=== PATIENT | female | born 1995 | race Caucasian/White ===

== ENCOUNTER → 2017-04-23 | Outpatient (REF) | payer OTHER ==
[2017-04-23 13:23] LABS: PLATELET COUNT, AUTOMATED 291 K/uL (150-450)
== END ==
LOC: ZZSTITCHES 13:05
PROVIDERS: ATTEND Physician Assistant
DX: R10.11 Right upper quadrant pain (principal); R19.8 Other specified symptoms and signs involving the digestive system and abdomen
CPT/HCPCS: 82040; 82247; 82310; 82374; 82435; 82565; 82947; 83690; 84075; 84132; 84155; 84295; 84450; 84460; 84520; 85025

== ENCOUNTER → 2017-04-23 | Outpatient (CLI) | payer OTHER ==
--- NOTE | 2017-04-23 14:46 | RADIOLOGY IMAGING REPORT ---
FACILITY: [facility] PATIENT NAME: Pita Lebron : 1995 MR: [id number] V: [id number] EXAM DATE: ORDERING PHYSICIAN: LASHONDA LOPEZ TECHNOLOGIST: Location: [facility] [place] Patient: Pita Lebron : 1995 Visit/Account:[id number] Date of Sevice: 04/23/2017 EXAMINATION: Focused right upper quadrant ultrasound COMPARISON: None HISTORY: Right upper quadrant pain for 2 days. Findings: Standard right upper quadrant abdominal ultrasound is performed. Pancreas: Visualized portions of the pancreas are unremarkable. Liver and portal vein: Negative. Gallbladder and biliary system: No gallbladder stone or sludge. No wall thickening, pericholecystic f luid, or sonographic Birch's. The common bile duct is not dilated. Aorta and IVC: The visualized aorta and IVC are patent. Kidneys: The right kidney measures 10.2 x 4.4 x 5.1 cm . No renal mass, stone, or hydronephrosis. Ascites: None. IMPRESSION: Negative right upper quadrant ultrasound. Report Dictated By: Toby Riley MD at 04/23/2017 2:40 PM Report E-Signed By: Toby Riley MD at 04/23/2017 2:41 PM WSN:[id number]
== END ==
LOC: US 13:55
PROVIDERS: ATTEND Physician Assistant
DX: R10.11 Right upper quadrant pain (principal); R19.8 Other specified symptoms and signs involving the digestive system and abdomen
CPT/HCPCS: 76705

== ENCOUNTER → 2017-05-07 | Outpatient (CLI) | payer OTHER ==
[~2017-05-07] MED LIST: BARIUM SULFATE 176 GM BTL PO ONE; BARIUM SULFATE 340 GM POWD ONE; OMEP-125 PO
--- NOTE | 2017-05-07 11:57 | RADIOLOGY IMAGING REPORT ---
FACILITY: [facility] [place] PATIENT NAME: Pita Lebron : 1995 MR: [id number] V: [id number] EXAM DATE: ORDERING PHYSICIAN: MAYCOL PETERSON TECHNOLOGIST: Location: [facility] [place] Patient: Pita Lebron : 1995 Visit/Account:[id number] Date of Sevice: 05/07/2017 EXAMINATION: Double contrast upper GI with small bowel follow-through 05/07/2017 5:43 AM HISTORY: Chronic diarrhea. Remote history of ruptured appendicitis at about the age of 6 with resect ion of distal small bowel at that time. COMPARISON: Normal abdominal ultrasound 04/23/2017 FLUOROSCOPY TIME: 1.5 minutes DOSE: DAP was 710.11 uGy/m2 FINDINGS: Loading Unit Operator Crimping KUB is unremarkable. Initially, the patient ingested swallows of thick barium uprig ht with the oral pharyngeal area imaged from the frontal and lateral projections. Swallowing is norm al. Hypopharynx is normally and symmetrically distensible. After the ingestion of bicarbonate crystals the patient drank additional thick barium upright followe d by thin barium in the prone MALIK position. Esophageal peristalsis is normal. The esophagus distend s normally without stricture or obstructing lesion. Mucosal pattern is unremarkable. No significant hiatal hernia. GE junction is widely patent. The stomach distends normally. Rugal folds are thickened. No gastric mass or ulceration is evident. There is no delay in gastric emptying. Duodenal bulb and C-loop are negative. No significant dalila roesophageal reflux was provoked with straining. Chondrosis follow-through the small bowel. Contrast reaches the colon by 30 minutes. Small bowel lo ops have normal caliber. Mucosal fold pattern is unremarkable. No focal stricture or obstruction. Neoterminal ileum is unremarkable in appearance. IMPRESSION: Small bowel is somewhat short from remote surgery. Otherwise unremarkable upper GI and small bowel f ollow-through. Report Dictated By: Shaq Howard MD at 05/07/2017 11:48 AM Report E-Signed By: Shaq Howard MD at 05/07/2017 11:52 AM WSN:[email or web address]
== END ==
LOC: RAD 00:18
PROVIDERS: ATTEND Surgery
DX: R10.10 Upper abdominal pain, unspecified (principal); R14.0 Abdominal distension (gaseous); R19.7 Diarrhea, unspecified
CPT/HCPCS: 74245

== ENCOUNTER → 2017-05-10 | Outpatient (CLI) | payer OTHER ==
[~2017-05-10] MED LIST changes: -BARIUM SULFATE 176 GM BTL PO ONE; -BARIUM SULFATE 340 GM POWD ONE; +SINCALIDE 5 MCG VIAL INJ ONE; +WATER STERILE(*) 10 ML VIAL 10 ML ONE
--- NOTE | 2017-05-10 14:02 | RADIOLOGY IMAGING REPORT ---
FACILITY: [facility] PATIENT NAME: Pita Lebron : 1995 MR: [id number] V: [id number] EXAM DATE: ORDERING PHYSICIAN: MAYCOL PETERSON TECHNOLOGIST: Location: [facility] [place] Patient: Pita Lebron : 1995 Visit/Account:[id number] Date of Sevice: 05/10/2017 HIDA W/CCK History: Abdominal pain TECHNIQUE: 5.9 mCi Tc99m mebrofenin was injected intravenously. Multiple sequential gamma camera rojelio ges of the abdomen were obtained for 60 minutes. At that time, 2.5 mcg of CCK was injected intravenou sly and an additional 30 minutes of gamma camera imaging data was acquired. A computer-generated reg ion of interest was placed around the gallbladder and time-activity curve for the gallbladder was jefe ived. The gallbladder ejection fraction was calculated. COMPARISON: None FINDINGS: Liver uptake and excretion: Normal Time to appearance: Bile ducts: 13 minutes. Gallbladder: 31 minutes. Duodenum: 13 minutes. Duodenal- gastric reflux / extravasation: None Post IV Kinevac: Patient symptoms: Nausea with CCK administration Ejection fraction = 9 %, (normal range > 35%). IMPRESSION: 1. Patency of the cystic duct and common bile duct are both demonstrated. 2. Low gallbladder ejection fraction measuring 9%. Report Dictated By: Evan Mcdonald MD at 05/10/2017 1:54 PM Report E-Signed By: Evan Mcdonald MD at 05/10/2017 1:59 PM WSN:[email or web address]
== END ==
LOC: NUC 01:09
PROVIDERS: ATTEND Surgery
DX: R10.10 Upper abdominal pain, unspecified (principal); R14.0 Abdominal distension (gaseous); R19.7 Diarrhea, unspecified
CPT/HCPCS: 78226; A4216; A9537; J2805

== ENCOUNTER 2017-05-14 07:05 | Inpatient (IN) | payer OTHER ==
[~2017-05-14] VITALS: Ht 172.7 cm; Wt 65.8 kg
[~2017-05-14 07:05] MED LIST changes: -SINCALIDE 5 MCG VIAL INJ ONE; -WATER STERILE(*) 10 ML VIAL 10 ML ONE
[2017-05-14] MEDS ORDERED: NS(*) 0.9% 1000 ML BAG 1,000 ML IV ONE (07:35)
[2017-05-14] MEDS ORDERED: KETOROLAC 15 MG/ML VIAL IVP ONE (07:45)
[2017-05-14] MEDS ORDERED: ONDANSETRON 4 MG/2 ML VIAL IVP ONE (07:45)
--- NOTE | 2017-05-14 07:53 | ER Report ---
History and Physical Time Seen By MD: 07:47 Hx. of Stated Complaint: PATIENT REPORTS ABDOMINAL CRAMPING SINCE YESTERDAY AROUND 4 PM. SHE REPORTS DIARRHEA FOR 3-4 DAYS AND 1 EPISODE OF EMESIS SINCE YESTERDAY HPI/ROS CHIEF COMPLAINT: Abdominal pain and cramping HISTORY OF PRESENT ILLNESS: Patient is a 21-year-old female who presents to the emergency department with abdominal pain and cramping that began yesterday around 4 PM. It was unrelated to meals. Patient has had similar episodes in the past and is being followed by general surgery she currently had a HIDA scan was done this past Wednesday and was reported by the patient as "normal". She is scheduled for a colonoscopy and perhaps further testing depending on the colonoscopy findings. Patient states her current pain is 5-6 out of 10 in intensity she reports associated nausea but no fever. She has a history of chronic diarrhea secondary to short gut syndrome. She is had an appendectomy that was complicated by rupture and removal of 3 feet of intestine. REVIEW OF SYSTEMS: Constitutional: No fever, no chills. Eyes: No discharge. ENT: No sore throat. Cardiovascular: No chest pain, no palpitations. Respiratory: No cough, no shortness of breath. Gastrointestinal: Abdominal cramping, chronic diarrhea, nausea no vomiting Genitourinary: No hematuria. Musculoskeletal: No back pain. Skin: No rashes. Neurological: No headache. Allergies: Coded Allergies: No Known Drug Allergies (Unverified , 04/30/17) Home Meds Reported Medications Omeprazole (OMEPRAZOLE) 20 Mg Capsule.dr, 1 CAP PO BID, CAP 04/30/17 Past Medical/Surgical History History of appendectomy with removal of 3 feet of intestine. History of chronic diarrhea secondary to short gut syndrome. Smoking Status: Never Smoker Hx Substance Use Disorder: No Hx Alcohol Use: No Constitutional Vital Sign - Last 24 Hours 05/14/17 05/14/17 05/14/17 05/14/17 07:09 07:14 07:30 07:35 Temp 98.2 Pulse 100 Resp 20 B/P (MAP) 152/87 152/87 (108) 121/87 (98) Pulse Ox 95 O2 Delivery Room Air 05/14/17 05/14/17 05/14/17 05/14/17 08:00 08:05 08:30 09:00 Pulse 96 B/P (MAP) 115/78 (90) 111/76 (88) 106/68 (81) Pulse Ox 97 Physical Exam General/Constitutional: Patient is awake, alert, nontoxic and in no acute respiratory distress. Head: Normocephalic and atraumatic. Eyes: Conjunctival clear, Pupils are equal and reactive to light. Sclera are clear and anicteric. Ears:External canals are clear. Tympanic membranes are clear with normal landmarks and light reflex. Nares: No rhinorrhea or bleeding. Turbinates are pink and moist. Oropharyngeal: Mucous membranes are moist. There is no pharyngeal erythema or exudate. There are no palatal petechiae. Uvula is midline and symmetrical. Neck: Supple, no adenopathy. Cardiovascular: Heart is regular rate and rhythm without audible murmurs, rubs or gallops. Pulmonary: Lungs are clear to auscultation bilaterally. There are no wheezes, rales, or rhonchi. Chest rise is symmetrical Abdomen: Soft, diffusely tender without guarding or rebound tenderness no focal tenderness elicited Extremities: No gross deformities, No peripheral cyanosis. Able to move all 4 extremities. Neuro: Alert and oriented X3, Skin: No rashes, skin is warm dry and well perfused. Medical Decision Making Data Points Result Diagram: 05/14/17 0728 05/14/17 0728 Laboratory Hematology Test 05/14/17 07:11 05/14/17 07:28 Urine Color Yellow Urine Clarity Clear Urine pH 6.0 pH (4.8-9.5) Urine Specific [place] 1.026 Urine Protein Negative mg/dL (NEGATIVE) Urine Glucose (UA) Negative mg/dL (NEGATIVE) Urine Ketones Negative mg/dL (NEGATIVE) Urine Blood Small (NEGATIVE) Urine Nitrite Negative (NEGATIVE) Urine Bilirubin Negative (NEGATIVE) Urine Urobilinogen Negative mg/dL (0.2-1.9) Urine Leukocyte Esterase Small (NEGATIVE) Urine RBC 3 /HPF (0-2/HPF) Urine WBC 9 /HPF (0-5/HPF) Urine Squamous Epithelial Cells Many /LPF (</=FEW) Urine Bacteria Few /HPF (NONE-FEW) Urine Mucus Few /HPF (NONE-FEW) Red Blood Count 5.49 M/uL (4.17-5.56) Mean Corpuscular Volume 87.2 fL (80.0-96.0) Mean Corpuscular Hemoglobin 30.0 pg (26.0-33.0) Mean Corpuscular Hemoglobin Concent 34.4 g/dL (32.0-36.0) Red Cell Distribution Width 12.6 % (11.5-14.5) Mean Platelet Volume 8.3 fL (7.2-11.1) Neutrophils (%) (Auto) 72.0 % (39.4-72.5) Lymphocytes (%) (Auto) 21.2 % (17.6-49.6) Monocytes (%) (Auto) 6.0 % (4.1-12.4) Eosinophils (%) (Auto) 0.5 % (0.4-6.7) Basophils (%) (Auto) 0.3 % (0.3-1.4) Nucleated RBC Relative Count (auto) 0.0 /100WBC Neutrophils # (Auto) 7.5 K/uL (2.0-7.4) Lymphocytes # (Auto) 2.2 K/uL (1.3-3.6) Monocytes # (Auto) 0.6 K/uL (0.3-1.0) Eosinophils # (Auto) 0.1 K/uL (0.0-0.5) Basophils # (Auto) 0.0 K/uL (0.0-0.1) Nucleated RBC Absolute Count (auto) 0.01 K/uL Sodium Level 140 mmol/L (137-145) Potassium Level 3.7 mmol/L (3.5-5.0) Chloride Level 103 mmol/L (98-107) Carbon Dioxide Level 22 mmol/L (22-31) Blood Urea Nitrogen 10 mg/dl (7-18) Creatinine 1.00 mg/dl (0.52-1.04) Glomerular Filtration Rate Calc > 60.0 Random Glucose 109 mg/dl (75-110) Calcium Level 9.6 mg/dl (8.4-10.2) Total Bilirubin 0.8 mg/dl (0.2-1.3) Aspartate Amino Transf (AST/SGOT) 31 U/L (0-35) Alanine Aminotransferase (ALT/SGPT) 22 U/L (0-56) Alkaline Phosphatase 126 U/L (0-126) Total Protein 7.4 gm/dl (6.3-8.2) Albumin 4.3 g/dl (3.5-5.0) Lipase 45 U/L (23-300) Human Chorionic Gonadotropin, Qual Negative (NEGATIVE) Helicobacter pylori IgG Antibody Negative (NEGATIVE) Chemistry Test 05/14/17 07:11 05/14/17 07:28 Urine Color Yellow Urine Clarity Clear Urine pH 6.0 pH (4.8-9.5) Urine Specific [place] 1.026 Urine Protein Negative mg/dL (NEGATIVE) Urine Glucose (UA) Negative mg/dL (NEGATIVE) Urine Ketones Negative mg/dL (NEGATIVE) Urine Blood Small (NEGATIVE) Urine Nitrite Negative (NEGATIVE) Urine Bilirubin Negative (NEGATIVE) Urine Urobilinogen Negative mg/dL (0.2-1.9) Urine Leukocyte Esterase Small (NEGATIVE) Urine RBC 3 /HPF (0-2/HPF) Urine WBC 9 /HPF (0-5/HPF) Urine Squamous Epithelial Cells Many /LPF (</=FEW) Urine Bacteria Few /HPF (NONE-FEW) Urine Mucus Few /HPF (NONE-FEW) White Blood Count 10.4 k/uL (4.5-11.0) Red Blood Count 5.49 M/uL (4.17-5.56) Hemoglobin 16.5 g/dL (12.0-16.0) Hematocrit 47.9 % (34.0-47.0) Mean Corpuscular Volume 87.2 fL (80.0-96.0) Mean Corpuscular Hemoglobin 30.0 pg (26.0-33.0) Mean Corpuscular Hemoglobin Concent 34.4 g/dL (32.0-36.0) Red Cell Distribution Width 12.6 % (11.5-14.5) Platelet Count 280 K/uL (150-450) Mean Platelet Volume 8.3 fL (7.2-11.1) Neutrophils (%) (Auto) 72.0 % (39.4-72.5) Lymphocytes (%) (Auto) 21.2 % (17.6-49.6) Monocytes (%) (Auto) 6.0 % (4.1-12.4) Eosinophils (%) (Auto) 0.5 % (0.4-6.7) Basophils (%) (Auto) 0.3 % (0.3-1.4) Nucleated RBC Relative Count (auto) 0.0 /100WBC Neutrophils # (Auto) 7.5 K/uL (2.0-7.4) Lymphocytes # (Auto) 2.2 K/uL (1.3-3.6) Monocytes # (Auto) 0.6 K/uL (0.3-1.0) Eosinophils # (Auto) 0.1 K/uL (0.0-0.5) Basophils # (Auto) 0.0 K/uL (0.0-0.1) Nucleated RBC Absolute Count (auto) 0.01 K/uL Glomerular Filtration Rate Calc > 60.0 Calcium Level 9.6 mg/dl (8.4-10.2) Total Bilirubin 0.8 mg/dl (0.2-1.3) Aspartate Amino Transf (AST/SGOT) 31 U/L (0-35) Alanine Aminotransferase (ALT/SGPT) 22 U/L (0-56) Alkaline Phosphatase 126 U/L (0-126) Total Protein 7.4 gm/dl (6.3-8.2) Albumin 4.3 g/dl (3.5-5.0) Lipase 45 U/L (23-300) Human Chorionic Gonadotropin, Qual Negative (NEGATIVE) Helicobacter pylori IgG Antibody Negative (NEGATIVE) Urinalysis Test 05/14/17 07:11 Urine Color Yellow Urine Clarity Clear Urine pH 6.0 pH (4.8-9.5) Urine Specific [place] 1.026 Urine Protein Negative mg/dL (NEGATIVE) Urine Glucose (UA) Negative mg/dL (NEGATIVE) Urine Ketones Negative mg/dL (NEGATIVE) Urine Blood Small (NEGATIVE) Urine Nitrite Negative (NEGATIVE) Urine Bilirubin Negative (NEGATIVE) Urine Urobilinogen Negative mg/dL (0.2-1.9) Urine Leukocyte Esterase Small (NEGATIVE) Urine RBC 3 /HPF (0-2/HPF) Urine WBC 9 /HPF (0-5/HPF) Urine Squamous Epithelial Cells Many /LPF (</=FEW) Urine Bacteria Few /HPF (NONE-FEW) Urine Mucus Few /HPF (NONE-FEW) EKG/Imaging Imaging CT scan is concerning for small bowel obstruction. ED Course/Re-evaluation Clinical Indication for ER IV: Hydration, IV Access ED Course 05/14/2017 7:53:18 am plan at this time will be to perform an abdominal workup including CT scan of the abdomen and pelvis. We'll give IV fluids, IV Zofran and IV Toradol at this time. 05/14/2017 9:30:18 am case was discussed with on-call surgeon Dr. Gonzales plan at this time will be admission for observation secondary to small bowel obstruction Decision to Disposition Date: May 14, 2017 Decision to Disposition Time: 09:30 Depart Departure Latest Vital Signs Vital Signs Date Time Temp Pulse Resp B/P (MAP) Pulse Ox O2 Delivery O2 Flow Rate FiO2 05/14/17 09:00 106/68 (81) 05/14/17 08:05 96 97 05/14/17 07:09 98.2 20 Room Air Impression: Primary Impression: Small bowel obstruction Condition: Improved Disposition: Admitted from ER (To Dr Helms) RACHEL BABB MD May 14, 2017 07:53
[2017-05-14 07:54] LABS: PLATELET COUNT, AUTOMATED 280 K/uL (150-450)
[2017-05-14] MEDS ORDERED: NS(*) 0.9% 10 ML VIAL 20 ML ONE (07:54)
[2017-05-14] MEDS ORDERED: IOPAMIDOL 76% 75 ML INFUS BTL 75 ML ONE (07:54)
--- NOTE | 2017-05-14 10:03 | RADIOLOGY IMAGING REPORT ---
FACILITY: [facility] PATIENT NAME: Pita Lebron : 1995 MR: [id number] V: [id number] EXAM DATE: ORDERING PHYSICIAN: RACHEL BABB TECHNOLOGIST: [facility] Patient: Pita Lebron : 1995 Visit/Account:[id number] Date of Sevice: 05/14/2017 CT abdomen with IV contrast CT pelvis with IV contrast History: Abdominal pain COMPARISON STUDIES: Small bowel follow-through 05/07/2017. TECHNIQUE: Axial CT images were obtained through the abdomen and pelvis during injection of nonioni c iodinated intravenous contrast. Reformatted coronal and sagittal images were also obtained. Contrast: 75 ml of Isovue-370 IV contrast. One of the following dose optimization techniques was utilized in the performance of this exam: Autom ated exposure control; adjustment of the mA and/or kV according to the patient's size; or use of an i terative reconstruction technique. Specific details can be referenced in the facility's radiology C T exam operational policy. FINDINGS: Chest bases: Negative Liver: Normal. Gallbladder and bile ducts: Gallbladder is present. Bile ducts are normal caliber. Spleen: size is normal. Pancreas: negative Adrenal glands: negative Kidneys: negative Pelvic structures: Uterus is anteverted. Ovaries are unremarkable. Bowel and mesenteries: A long loop of small bowel in the lower abdomen just to the left midline is d istended with fluid to a diameter of 4 cm.. There is mesenteric edema in the center of the affected small bowel loop. The ends of the dilated small bowel transition abruptly to decompressed small donnie l. Distal small bowel and colon are completely decompressed. The appendix is obscured. Ascites: A small amount of free fluid is seen in the lower pelvis. Vessels: negative Musculoskeletal: Negative Body wall: negative Lymph node assessment: negative IMPRESSION: Mechanical mid small bowel obstruction is very suspicious for closed loop obstruction due to the pres ence of mesenteric edema and abrupt tapering of both ends of the affected bowel loop. Surgical consu ltation is recommended. Results were discussed with RACHEL BABB at 05/14/2017 9 AM. Report Dictated By: Josefina Miller MD at 05/14/2017 9:01 AM Report E-Signed By: Josefina Miller MD at 05/14/2017 9:19 AM JULESN:[email or web address]
[2017-05-14 10:12] VITALS: BP 111/76
[2017-05-14] MEDS ORDERED: PROMETHAZINE 25 MG/ML 1 ML AMP IVP PRN (10:50)
[2017-05-14] MEDS ORDERED: FLUSH 10 ML SYR IVP PRN (10:50)
[2017-05-14] MEDS ORDERED: HYDROmorphone PCA 6 MG/30 ML IV PRN (10:50)
[2017-05-14] MEDS ORDERED: NALOXONE HCL 0.4 MG/ML VIAL IVP PRN (10:50)
[2017-05-14] MEDS ORDERED: ONDANSETRON 4 MG/2 ML VIAL IVP PRN (10:50)
[2017-05-14] MEDS: NS(*) 0.9% 1000 ML BAG 1,000 ML IV PRN ×2 (12:14→22:21)
[2017-05-14] MEDS ORDERED: DIATRIZOATE MEGL/DIATRIZOA SOD 120 ML SOLN PO ONE (12:46)
--- NOTE | 2017-05-14 12:46 | RADIOLOGY IMAGING REPORT ---
FACILITY: [facility] [place] PATIENT NAME: Pita Lebron : 1995 MR: [id number] V: [id number] EXAM DATE: ORDERING PHYSICIAN: MAYCOL PETERSON TECHNOLOGIST: Location: [facility] Patient: Pita Lebron : 1995 Visit/Account:[id number] Date of Sevice: 05/14/2017 Abdomen, 1 View History: Small bowel obstruction Comparison: CT abdomen and pelvis 05/14/2017 Findings: Bowel: A gas-filled small bowel loop in the left midabdomen is distended to 4 cm diameter. The flui d distended loops of small bowel in the lower abdomen are not visible on this abdominal radiograph. Distal small bowel and colon are decompressed. Calcifications: There are no radiopaque urinary stones. Bones: Negative Other: Radiopaque contrast is seen within the renal collecting systems, ureters, and bladder. IMPRESSION: Mechanical mid small bowel obstruction is better characterized by recent CT abdomen and pelvis, since the fluid distended small bowel is obscured on this plain film radiograph. Report Dictated By: Josefina Miller MD at 05/14/2017 12:40 PM Report E-Signed By: Josefina Miller MD at 05/14/2017 12:43 PM WSN:[email or web address]
[2017-05-14] MEDS ORDERED: PANTOPRAZOLE SOD 40 MG IV VIAL IVP SCH (13:40)
[2017-05-14 14:47] VITALS: BP 107/76
--- NOTE | 2017-05-14 16:20 | RADIOLOGY IMAGING REPORT ---
FACILITY: [facility] PATIENT NAME: Pita Lebron : 1995 MR: [id number] V: [id number] EXAM DATE: ORDERING PHYSICIAN: MAYCOL PETERSON TECHNOLOGIST: Location: [facility] [place] Patient: Pita Lebron : 1995 Visit/Account:[id number] Date of Sevice: 05/14/2017 SMALL BOWEL SERIES HISTORY: Small bowel obstruction COMPARISON: CT abdomen and pelvis 05/14/2017, upper GI and small bowel follow-through 05/07/2017. PROCEDURE: Half strength, water-soluble Gastrografin, 480 mL was administered orally. A series of ab dominal radiographs were obtained to two hours 15 minutes as contrast traveled from the stomach to th e colon through the small bowel. FINDINGS: Small bowel transit time was two hours 15 minutes. Proximal and mid bowel in the midabdomen becomes progressively distended as contrast migrates forward, correlating to the small bowel distention seen on the recent CT abdomen and pelvis. A small bowel loop in the upper pelvis measures nearly 6 cm pancho meter. The majority of the contrast concentrates within the mid small bowel, with transition to deco mpressed and minimally opacified distal small bowel and colon on the final image. The patient vomited the residual contrast within the stomach between 30 minutes and one hour 15 minut e images. IMPRESSION: Mechanical mid small bowel obstruction. Report Dictated By: Josefina Miller MD at 05/14/2017 4:09 PM Report E-Signed By: Josefina Miller MD at 05/14/2017 4:15 PM WSN:[email or web address]
[2017-05-14 17:05] VITALS: BP 107/63
--- NOTE | 2017-05-14 17:25 | Gen Surgery History & Physical ---
History of Present Illness Chief Complaint Abdominal pain History of Present Illness 21-year-old female with an extensive past abdominal surgical history presents with a 18 hour history of abdominal pain. The pain started yesterday evening and she has not passed flatus or gas since then. She is known to me as I recently saw her in the clinic with abdominal symptoms including postprandial nausea, right upper quadrant abdominal pain, and diarrhea. She reported at the time that she had a 4 day history of severe abdominal pain and cramps 6 months ago that she did not seek treatment for that time but simply stopped eating and it got better on its own. Her extensive abdominal surgical history includes a perforated appendicitis when she was 6 years old and this was treated with an emergent appendectomy complicated by an abscess which for some reason was treated with laparotomy and bowel resection which was complicated by an anastomotic leak which was treated with another operation. Ultimately she was transferred to [facility] where she had a another abscess percutaneously drained and ultimately she recovered from all of this. This complicated hospital and surgical course lasted for several months of her being in the hospital. Since then, she has had chronic abdominal pain and diarrhea. Here is my clinic note (HPI) from 04/30/17: 21-year-old female is referred for evaluation of GI symptoms. 1st and foremost, she has long-standing diarrhea since she was about 6 years old. Her diarrhea waxes and wanes but she never has constipation. At its worst, she will have 8-10 watery out movements a day including ones that will get her up in the middle of the night. At its best she will have 1-2 soft, semi-formed, bowel movements a day. She has diarrhea 80% of the time. Some foods will exacerbate her abdominal symptoms on one day but not on other days. Sometimes stress will exacerbate her diarrhea as well. More lately she has been experiencing abdominal pain which is in her upper abdomen but she relates it to her diarrhea as well, when her abdominal pain is worse, her diarrhea is worse. She was seen in urgent care where a right upper quadrant ultrasound was performed and was normal. She was started on PPI therapy a couple of months ago but was under the impression that she had to eat a half an hour after taking the medication but she does not like to eat in the mornings because she often experiences GI upset if she eats in the mornings. For this reason, she has not been taking the PPI regularly. That being said, when she has taken it, she has felt that it is helped with her epigastric pain although after she eats after taking and she will have GI upset. GI upset includes an unsettled stomach and nausea but not typically vomiting. Other than her episode several months ago and now she has never had a bowel obstruction. She hasn't had any further abdominal surgeries since she was 6yo. History Problems: (1) S/P appendectomy Status: Chronic (2) H/O resection of small bowel Status: Chronic (3) Anastomotic leak of intestine Status: Resolved Home Meds Reported Medications Omeprazole (OMEPRAZOLE) 20 Mg Capsule.dr, 1 CAP PO BID, CAP 04/30/17 Allergies: Coded Allergies: No Known Drug Allergies (Unverified , 04/30/17) Patient History: FH: HTN (hypertension) FATHER, Age:44 GERD FATHER, Age:44 No pertinent family history MOTHER BROTHER OR SISTER BROTHER OR SISTER Review of Systems All Systems Reviewed/Normal: Yes, Except as Noted Gastrointestinal: Nausea, Vomiting, Constipation, Abdominal Pain Exam General Appearance: Alert, Awake, No Acute Distress, Afebrile Neuro: No Gross deficits Eyes: PERRLA GI: Other (Soft, mild TTP, nondistended, no peritoneal signs.) Extremities: Warm, Perfused Medical Decision Making Data Points Result Diagram: 05/14/17 0728 05/14/17 0728 Assessment and Plan Problems: (1) Small bowel obstruction Status: Acute Assessment & Plan: 05/14/17: Patient is admitted for close observation. We will keep her nothing by mouth and give her IV fluids. If she has persistent nausea and vomiting then we will insert an NG tube for GI decompression. KUB is consistent with a small bowel obstruction and so we will follow serial KUBs. Small bowel follow-through reveals contrast ultimately making it to her colon and so tomorrow his KUB can help us assess how this evolves. If she fails to improve over the next day or 2 then we will proceed with surgical exploration. Recent HIDA scan reveals a gallbladder ejection fraction of 9% and so we would discuss cholecystectomy at the time of surgery if there is no contraindication for this. If she resolves without surgery during this hospitalization then I will continue to see her in the clinic and continue her evaluation and ultimately I would presume that she will need some sort of surgery to include a cholecystectomy but I can also assess her small bowel for adhesions or other problems at that time. I have explained this plan to both her and her mother via telephone and they seem to understand and seem to be agreeable with this plan. Condition Stable. Time Spent: < 30 min Venous Thromboembolism VTE Risk Physician Assess for VTE Risk: Yes Patient's VTE Risk: Low VTE Diagnostic Test 2 Days Prior to Admit: No Antithrombotics Is Pt On Any Antithrombotics?: No MAYCOL PETERSON MD May 14, 2017 17:25
[2017-05-14 18:50] VITALS: BP 106/68
[2017-05-14 22:22] VITALS: BP 109/65
[2017-05-15 04:53] VITALS: BP 102/63
[2017-05-15 05:38] LABS: PLATELET COUNT, AUTOMATED 212 K/uL (150-450)
--- NOTE | 2017-05-15 06:39 | RADIOLOGY IMAGING REPORT ---
FACILITY: [facility] PATIENT NAME: Pita Lebron : 1995 MR: [id number] V: [id number] EXAM DATE: ORDERING PHYSICIAN: MAYCOL PETERSON TECHNOLOGIST: Location: [facility] Patient: Pita Lebron : 1995 Visit/Account:[id number] Date of Sevice: 05/15/2017 Abdomen: Indication: Obstruction. Technique: A single supine film was obtained. Comparison: Small bowel series dated 05/14/2017. Findings: The oral contrast material is now present in the proximal, mid, and distal colon. The colon is not dilated. There is no residual contrast material in the small intestine. The skeletal and soft tissue structures are unremarkable and unchanged. IMPRESSION: No evidence of small bowel obstruction. Report Dictated By: Epi Lora MD at 05/15/2017 6:32 AM Report E-Signed By: Epi Lora MD at 05/15/2017 6:34 AM WSN:[id number]
[2017-05-15] MEDS: NS(*) 0.9% 1000 ML BAG 1,000 ML IV PRN (06:40)
[2017-05-15 08:13] VITALS: BP 101/52
[2017-05-15] MEDS ORDERED: NS(*) 0.9% 1000 ML BAG 1,000 ML IV PRN (08:51)
--- NOTE | 2017-05-15 08:56 | General Surgery Progress Note ---
Subjective Progress Notes Subjective Main complaint this morning is left anterior chest discomfort that started 2.5 hours ago. No SOB. She thinks it's from laying in bed. No previous h/o chest pain. Abdomen is back to her baseline. Not much abdominal pain. Physical Exam Vital Signs Date Time Temp Pulse Resp B/P (MAP) Pulse Ox O2 Delivery O2 Flow Rate FiO2 05/15/17 08:13 91 05/15/17 08:13 98.2 96 18 101/52 (68) Room Air General Appearance: Alert, Awake, No Acute Distress, Afebrile GI: Other (Soft, mild RLQ TTP, much better than yesterday, no distension.) Extremities: Warm, Perfused Result Diagram: 05/15/1752605/15/17526 Assessment and Plan Problems: (1) Small bowel obstruction Status: Acute Assessment & Plan: 05/14/17: Patient is admitted for close observation. We will keep her nothing by mouth and give her IV fluids. If she has persistent nausea and vomiting then we will insert an NG tube for GI decompression. KUB is consistent with a small bowel obstruction and so we will follow serial KUBs. Small bowel follow-through reveals contrast ultimately making it to her colon and so tomorrow his KUB can help us assess how this evolves. If she fails to improve over the next day or 2 then we will proceed with surgical exploration. Recent HIDA scan reveals a gallbladder ejection fraction of 9% and so we would discuss cholecystectomy at the time of surgery if there is no contraindication for this. If she resolves without surgery during this hospitalization then I will continue to see her in the clinic and continue her evaluation and ultimately I would presume that she will need some sort of surgery to include a cholecystectomy but I can also assess her small bowel for adhesions or other problems at that time. I have explained this plan to both her and her mother via telephone and they seem to understand and seem to be agreeable with this plan. 05/15/17: Doing much better this morning. Passing flatus. No BM yet. KUB looks normal this morning. No dilated small bowel and all contrast is in the colon. Will start clear diet this morning. Condition Stable. Time Spent: < 30 min Exam Sepsis Risk: No Definite Risk MAYCOL PETERSON MD May 15, 2017 08:56
[2017-05-15 09:53] VITALS: Ht 172.7 cm; Wt 65.8 kg
[2017-05-15 11:13] VITALS: BP 100/55
[2017-05-15 14:42] VITALS: BP 108/67
--- NOTE | 2017-05-15 15:08 | EKG ---
FACILITY: [facility] [place] PATIENT NAME: AGUSTINA HORNER : [id number] MR: [id number] V: [id number] EXAM DATE: ORDERING PHYSICIAN: MAYCOL PETERSON TECHNOLOGIST: Andre Nice Reason : Blood Pressure : / mmHG Vent. Rate : 090 BPM Atrial Rate : 090 BPM P-R Int : 160 ms QRS Dur : 082 ms QT Int : 352 ms P-R-T Axes : 075 069 044 degrees QTc Int : 430 ms Normal sinus rhythm with sinus arrhythmia Normal ECG No previous ECGs available Confirmed by RYAN NAPIER ([id number]) on 05/15/2017 4:27:13 PM Referred By: Confirmed By:RYAN NAPIER
--- NOTE | 2017-05-15 16:27 | RADIOLOGY IMAGING REPORT ---
FACILITY: [facility] PATIENT NAME: Pita Lebron : 1995 MR: [id number] V: [id number] EXAM DATE: ORDERING PHYSICIAN: MAYCOL PETERSON TECHNOLOGIST: Location: [facility] Patient: Pita Lebron : 1995 Visit/Account:[id number] Date of Sevice: 05/15/2017 CHEST SINGLE AP Indication: Chest pressure.. Comparison: None available Findings: Cardiomediastinal silhouette and pulmonary vessels within normal limits. There is no focal infiltrate or lobar consolidation. No pneumothorax or pleural effusion. No nodule. Upper abdomen is unremarkable. No acute bony abnormality. IMPRESSION: 1. No acute cardiopulmonary process. Report Dictated By: Aron Schwartz at 05/15/2017 4:24 PM Report E-Signed By: Aron Schwartz at 05/15/2017 4:25 PM WSN:[id number]
[2017-05-15] MEDS ORDERED: HYDROmorphone HCL 2 MG/ML SDV IVP PRN (18:00)
[2017-05-15] MEDS ORDERED: ACETAMINOPHEN 325 MG TAB PO PRN (18:00)
[2017-05-15] MEDS ORDERED: IBUPROFEN 600 MG TAB PO PRN (18:00)
--- NOTE | 2017-05-15 18:03 | Miscellaneous Provider Note ---
Miscellaneous Provider Note Note No GI issues today. Just started on regular diet. Had a small BM. No N/V. Pt with recurring chest pain but CXR unremarkable and EKG without a cardiac cause. Pain is worse with activity. If continues, may need to get a chest CT. If chest pain is better and GI function still good, then home tomorrow. MAYCOL PETERSON MD May 15, 2017 18:03
[2017-05-15 20:25] VITALS: BP 117/67
[2017-05-15 23:36] VITALS: BP 120/77
[2017-05-16 04:28] VITALS: BP 113/61
[2017-05-16 07:53] VITALS: BP 109/69
--- NOTE | 2017-05-16 08:02 | Short(Outpt) Discharge Summary ---
Discharge Summary Reason for Hosp/Final Diag: (1) Small bowel obstruction Status: Acute Hospital Course & Plan: 05/14/17: Patient is admitted for close observation. We will keep her nothing by mouth and give her IV fluids. If she has persistent nausea and vomiting then we will insert an NG tube for GI decompression. KUB is consistent with a small bowel obstruction and so we will follow serial KUBs. Small bowel follow-through reveals contrast ultimately making it to her colon and so tomorrow his KUB can help us assess how this evolves. If she fails to improve over the next day or 2 then we will proceed with surgical exploration. Recent HIDA scan reveals a gallbladder ejection fraction of 9% and so we would discuss cholecystectomy at the time of surgery if there is no contraindication for this. If she resolves without surgery during this hospitalization then I will continue to see her in the clinic and continue her evaluation and ultimately I would presume that she will need some sort of surgery to include a cholecystectomy but I can also assess her small bowel for adhesions or other problems at that time. I have explained this plan to both her and her mother via telephone and they seem to understand and seem to be agreeable with this plan. 05/15/17: Doing much better this morning. Passing flatus. No BM yet. KUB looks normal this morning. No dilated small bowel and all contrast is in the colon. Will start clear diet this morning. 05/16/17: Doing well. Chest discomfort and abdominal pain have resolved. She is feeling back to normal. Tolerating diet. Will d/c to home and continue w/u as outpatient for her chronic GI symptoms. Departure Discharge to: Home, Self Care Discharge Instructions Home Meds Reported Medications Omeprazole (OMEPRAZOLE) 20 Mg Capsule., 1 CAP PO BID, CAP 04/30/17 Diet: Regular Activity: As Tolerated MAYCOL PETERSON MD May 16, 2017 08:02
[2017-05-16] MEDS ORDERED: PANTOPRAZOLE SOD 40 MG TABEC PO SCH (09:00)
== END 2017-05-16 10:15 | disposition home or self-care (01) | DRG 389 ==
LOC: ER 07:06 → MED 09:52
PROVIDERS: ADMIT Surgery; ATTEND Surgery
DX: K56.600 Partial intestinal obstruction, unspecified as to cause (principal); K91.2 Postsurgical malabsorption, not elsewhere classified; K21.9 Gastro-esophageal reflux disease without esophagitis
CPT/HCPCS: 36415; 71045; 74018; 74177; 74250; 81001; 82040; 82247; 82310; 82374; 82435; 82565; 82947; 83690; 84075; 84132; 84155; 84295; 84450; 84460; 84520; 84703; 85025; 86677; 93005; 96361; 96374; 96375; 99285; C9113; J1170; J1885; J2405; J7030; Q9967

== ENCOUNTER 2017-08-12 01:03 | Observation (INO) | payer OTHER ==
[2017-05-15 09:53] VITALS: Ht 172.7 cm; Wt 67.6 kg
[~2017-08-12] VITALS: Ht 172.7 cm; Wt 67.6 kg
[2017-08-12] VITALS (17 sets, daily range): BP systolic 94–122; BP diastolic 59–75
[~2017-08-12 01:03] MED LIST changes: +GOLYTE PO
[2017-08-12] MEDS ORDERED: fentaNYL CITR 250 MCG/5 ML AMP ONE (09:17)
[2017-08-12] MEDS ORDERED: LIDOCAINE MPF 1% 5 ML VIAL ONE (09:17)
[2017-08-12] MEDS ORDERED: PROPOFOL EMUL(*) 10MG/ML 20 ML 20 ML ONE (09:18)
[2017-08-12] MEDS ORDERED: MIDAZOLAM 2 MG/2 ML VIAL IVP PRN (09:25)
[2017-08-12] MEDS ORDERED: AMPICILLIN/SULBACT (*) 3 GM VL 3 GM in NS(*) 0.9% 100 ML BAG 100 ML IVPB ONE (09:25)
[2017-08-12] MEDS ORDERED: NORMOSOL R SOLN(*) 1000 ML BAG 1,000 ML IV PRN (09:25)
[2017-08-12] MEDS ORDERED: LIDOCAINE/SOD BICARB 8.4% SYR ID ONE (09:25)
[2017-08-12] MEDS ORDERED: ROPIVACAINE 0.5% 20 ML VIAL ONE (10:09)
[2017-08-12] MEDS ORDERED: ROCURONIUM BROM 10 MG/ML 10 ML ONE (10:15)
[2017-08-12] MEDS ORDERED: INDOCYANINE GREEN 25 MG VIAL IVP ONE (10:19)
[2017-08-12] MEDS ORDERED: ONDANSETRON 4 MG/2 ML VIAL ONE (10:24)
[2017-08-12] MEDS ORDERED: DEXAMETHASONE SOD 4 MG/ML VIAL ONE (10:24)
[2017-08-12] MEDS ORDERED: KETAMINE HCL 200 MG/20 ML MDV ONE ×2 (10:26→11:22)
[2017-08-12] MEDS ORDERED: SUGAMMADEX SOD 200 MG/2 ML SDV ONE (10:51)
[2017-08-12] MEDS ORDERED: fentaNYL CITR 100 MCG/2 ML AMP ONE ×5 (11:13→13:20)
[2017-08-12] MEDS ORDERED: FLUSH 10 ML SYR IVP PRN (13:15)
[2017-08-12] MEDS ORDERED: MORPHINE 2 MG/ML SYR IVP PRN (13:15)
[2017-08-12] MEDS ORDERED: ACETAMINOPHEN(*)1000 MG/100 ML 100 ML IVPB PRN (13:15)
[2017-08-12] MEDS ORDERED: PROMETHAZINE 25 MG/ML 1 ML AMP IVP PRN (13:15)
[2017-08-12] MEDS ORDERED: ONDANSETRON 4 MG/2 ML VIAL IVP PRN (13:15)
--- NOTE | 2017-08-12 13:31 | Post Operative Progress Note ---
Post Operative Progress Note Date: August 12, 2017 Time: 13:19 Surgeon: Analia Dictation number: [id number] Anesthesia: GETA by Dr. Larson Pre-Op Diagnosis: Biliary dyskinesia Abdominal pain Nausea Diarrhea Bloating Post-Op Diagnosis: ZACH Left ovarian mass Findings: Left Ovarian Mass, Dr. Groves was consulted intraoperatively and provided recommendations and will see her in her office for further w/u and treatment of this. Procedure(s): EGD with biopsies Colonoscopy with biopsies Exploratory laparoscopy Laparoscopic Adhesiolysis Robotic cholecystectomy Specimen Removed:(May be N/A): Gallbladder Complications: None Fluids: See anesthesia record Estimated Blood Loss: Minimal Date OP Note Dictated: August 12, 2017 Time OP Note Dictated: 13:21 MAYCOL PETERSON MD August 12, 2017 13:31
[2017-08-12] MEDS ORDERED: ACETAMINOPHEN(*)1000 MG/100 ML 100 ML IVPB ONE (13:40)
[2017-08-12] MEDS ORDERED: KETOROLAC 30 MG/ML VIAL IVP ONE (13:40)
--- NOTE | 2017-08-12 17:24 | OPERATIVE REPORT 1 ---
EVENT DATE: August 12, 2017 SURGEON: Daniel Helms MD ANESTHESIOLOGIST: Molina Larson MD ANESTHESIA: General endotracheal anesthesia. PREOPERATIVE DIAGNOSES 1. Biliary dyskinesia. 2. Abdominal pain. 3. Nausea. 4. Diarrhea. 5. Bloating. POSTOPERATIVE DIAGNOSES 1. Biliary dyskinesia. 2. Abdominal pain. 3. Nausea. 4. Diarrhea. 5. Bloating. 6. Left ovarian mass. PROCEDURES PERFORMED 1. Esophagogastroduodenoscopy with biopsies. 2. Colonoscopy with biopsies. 3. Exploratory laparoscopy. 4. Laparoscopic adhesiolysis. 5. Robotic cholecystectomy. COMPLICATIONS None. CONDITION Stable. BLOOD LOSS Minimal. FINDINGS This patient had fairly extensive adhesions, mostly at the midline and in the right lower quadrant. There was some bowel involving the adhesions in right lower quadrant which I left in place. Her right ovary had some benign- appearing cysts and looked normal, but her left ovary was very enlarged, and intraoperative gynecologic consult was obtained with Dr. Groves who came in and evaluated this. She felt that it required further workup, but felt the best option was not to do anything during this operation, work it up with tumor markers and imaging, and then come back and do the appropriate operation based on the workup. EGD and colonoscopy were unremarkable. Biopsies were taken of her stomach and duodenum to rule out H. pylori infection as well as villous blunting. Random biopsies were taken throughout her colon as well, but her colon was grossly unremarkable. SPECIMENS 1. Gallbladder. 2. PyloriTek from gastric antrum. 3. Duodenum. 4. Random colon. INDICATIONS This is a 22-year-old female with an extensive abdominal surgical history involving appendicitis when she was [age]. Apparently, her appendix was removed , but she developed an abscess, requiring a couple more operations which ultimately resulted in a small bowel resection. This was over a prolonged, four - to six-week hospitalization, ultimately transpiring her being transferred to [facility] in [place]. Since then, she has had GI symptoms including abdominal pain and diarrhea. She presented to my office requesting to have these worked up. We developed a plan to work them up including upper and lower GI endoscopy, and part of this was a right upper quadrant ultrasound and a HIDA scan. The HIDA scan revealed that she had an ejection fraction of 9%. Prior to our ability to do the endoscopy procedures, she had to be admitted to the hospital with a small-bowel obstruction. She is a student and very busy and so requested at that time that we try to do the endoscopic procedures as well as cholecystectomy and laparoscopic exploration during one anesthetic to minimize her down time. Fortunately, she responded well to conservative management, did not require surgery at the time of her bowel obstruction. I then saw her back in the clinic, and she continued to request that we try to do all of these procedures at once, and so she was consented for an EGD with biopsies, colonoscopy with biopsies, exploratory laparoscopy, and cholecystectomy. DESCRIPTION OF PROCEDURE The patient was brought to the operating room and placed supine on the operating table. General endotracheal anesthesia was administered, and a bite block was inserted into her mouth. The endoscope was obtained and tested to ensure it was completely functional, then lubricated and inserted into her mouth through the bite block. The scope was advanced into the esophagus without any problems and all the way into the third portion of the duodenum. I slowly withdrew the scope as I looked at all mucosal surfaces for any abnormalities. I did biopsies of the duodenum as well as her gastric antrum for PyloriTek and looked at all surfaces of the stomach as well as the GE junction and the esophagus. The scope was then withdrawn from the patient's mouth. We swapped the scopes for a colonoscope and set this up and tested it to ensure it was completely functional, then lubricated it and inserted it into her rectum through her anus. I advanced the scope all the way through to her cecum and into her terminal ileum without any problems. I then slowly withdrew the scope as I looked at all mucosal surfaces for any abnormalities. I did random biopsies throughout her colon, and then when the tip was in the rectum, I retroflexed the scope to look at the distal rectum and upper anal canal, then straightened the scope out and withdrew it from her anus. The entire colon was unremarkable, and the prep was excellent. At this point, we proceeded with the surgical portion of this case. Her abdomen was prepped and draped in a sterile fashion. A timeout was completed, and I injected the left subcostal skin with 0.5% ropivacaine plain and made a 5 mm incision. I then used a Veress needle hooked up to carbon dioxide insufflation and then advanced the needle into the abdomen and proceeded to insufflate her abdomen to a pressure of 15 mmHg. I then used a 5 mm optical trocar with a camera inside and focused and inserted the camera into her insufflated abdomen under direct visualization without any problems. I then looked around her abdomen with the 30-degree angled, 5 mm scope and found adhesions in the midline, some adhesions over the left side of her liver, adhesions to her sigmoid colon, and adhesions to the right lower quadrant. I then placed another 5 mm port in the left mid abdomen and used scissors to take down these adhesions, which thankfully most were thin and wispy , and I could see through them. Once I had all of these taken down, I was able to get 12 mm port in the abdominal midline, which I went right through a previous midline laparotomy scar, and then one through her right lower quadrant appendectomy scar, putting an 8 mm robotic port into this one. With ease, I was able to take down some adhesion in the right lower quadrant, but I could see bowel adherent to the abdominal wall. Since she is not currently having any problems, I took down some of these adhesions to clean it off, but I did not take them all down and free up this bowel so that I did not cause her any further problems such as a bowel injury. I then looked at her gynecologic organs, and the right ovary appeared cystic, but normal. The uterus appeared normal. The left ovary was very enlarged. I asked if Dr. Groves, one of our gynecologists, was available to come in, and she did. She came into surgery and looked at the ovary on the screen. She felt that it was suspicious enough that more needed to be done, but did not think that doing an oophorectomy in this 22-year-old, who presumably desires to have kids in the future, to do this during this operation. She felt further workup and discussion with the patient were warranted. The ovary was placed in its natural position, and we then converted the two 5 mm ports on the left side of the abdomen to robotic 8 mm ports and then docked the robot. The robot was then targeted and instruments inserted. I scrubbed out, went to the console, and completed the cholecystectomy portion of this case. A ProGrasp grasper was used to grasp the fundus of the gallbladder and retract it towards the patient' s right shoulder. A Cadiere grasper was used to grasp the infundibulum and retract it towards the patient's right hip. I then divided the peritoneum overlying the infundibulum with the hook electrocautery and then up both medial and lateral aspects of the gallbladder. I stripped this down and cleaned off the cystic artery and duct circumferentially. There were actually two adjacent cystic arteries which were cleaned off separately. Interestingly, the hepatic artery was very clearly visible and actually went in toward the triangle of Calot, but this was easily identified and avoided. The common bile duct and common hepatic duct were also easily visible, and I was well away from these. Once the cystic duct and arteries were cleaned off circumferentially, they were all clipped proximally and distally and, in fact, three clips were placed on the distal cystic duct, and the duct and arteries were divided between clips. The posterior attachments to the gallbladder were divided with electrocautery. I the gallbladder from the gallbladder fossa, and then the gallbladder was placed in a surgical specimen retrieval bag and removed from the abdomen through the umbilical port site. I irrigated and dried the right upper quadrant and removed all the irrigation fluid. I inspected the gallbladder fossa as well as the cystic duct and artery stumps, and there was no bleeding or bile leaks anywhere. I then undocked the robot after removing all of the robotic instruments and then inserted the laparoscopic camera. I again inspected around the abdomen to make sure there was no bleeding or other problems from my previous adhesiolysis, and everything looked great. I then closed the midline fascia with running 0 Vicryl suture, and I left the ports and camera in so I could watch the sutures pass through the fascia and make sure they were not entrapping any underlying viscera. I had good reapproximation of the fascial edges and was even airtight, and there was no involvement of underlying viscera in this closure. I then desufflated the abdomen and removed the remaining 8 mm ports. I then closed each of the port sites with 4-0 Monocryl subcuticular sutures. Skin was cleaned and dried, and Steri-Strips were applied, followed by sterile surgical dressings. The patient was awakened, extubated in the operating room, and transported to the recovery room in stable condition having tolerated the procedure without any apparent problems. ANA
[2017-08-12] MEDS: NS(*) 0.9% 1000 ML BAG 1,000 ML IV PRN (17:54)
[2017-08-12] MEDS: DOCUSATE SODIUM 100 MG CAP PO SCH (20:50)
[2017-08-12] MEDS: FAMOTIDINE 20 MG TAB PO SCH (20:51)
[2017-08-12] MEDS: KETOROLAC 30 MG/ML VIAL IVP PRN (21:29)
[2017-08-13] MEDS: NS(*) 0.9% 1000 ML BAG 1,000 ML IV PRN (02:11)
[2017-08-13 05:04] VITALS: BP 105/66
[2017-08-13] MEDS ORDERED: PER PO (07:52)
--- NOTE | 2017-08-13 07:59 | Short(Outpt) Discharge Summary ---
Discharge Summary Reason for Hosp/Final Diag: (1) Biliary dyskinesia Status: Chronic Hospital Course & Plan: 08/13/17: POD#1 s/p EGD with biopsies, colonoscopy with biopsies, exploratory laparoscopy with FRAN, robotic cholecystectomy. Doing well this morning. No issues. (2) Mass of left ovary Status: Chronic Hospital Course & Plan: Tumor markers pending. Pt to follow up with Dr. Groves to further evaluate this. (3) Abdominal pain Status: Chronic (4) Diarrhea Status: Chronic Departure Discharge to: Home, Self Care Discharge Instructions Home Meds Active Scripts Oxycodone/Acetaminophen (OXYCODONE/ACETAMINOPHEN 5MG/325 MG) 5 Mg/325 Mg Tab, 1- 2 TAB PO Q4H Y for MODERATE PAIN, #30 TAB 0 Refills Prov:MAYCOL PETERSON MD 08/13/17 Reported Medications Omeprazole (OMEPRAZOLE) 20 Mg Capsule.dr, 1 CAP PO BID, CAP 04/30/17 Discontinued Scripts Peg/Electrolytes (GOLYTELY SOLUTION) 4,000 Ml Soln, 1 GAL PO ONCE, #1 GAL 0 Refills Prov:MAYCOL PETERSON MD 08/09/17 Follow up Referrals: General Surgery - 09/01/17 @ Surgery, General with Maycol Peterson Md You have a follow up appointment with Dr. Peterson on 09/01/17, at 4:00pm. PARTS SPECIALIST - 09/01/[address] [facility] [place] with Zoe Groves Md You have an appointment with Dr. Groves contract preparer on 09/01/17, at 3:00pm. Diet: Regular Activity: As Tolerated Special Instructions: You may remove the white surgical dressings on 08/14/17, then you can shower. After showering, leave the incisions open to air but leave the steristrips in place until the fall off on their own. Do not immerse the incisions for 2 weeks. My clinic nurse, Palma, will call you in either today or early next week to set up an MRI to evaluate your left ovary so Dr. Groves will have the results when she see you in her office on 09/01/17. Problem Qualifiers (1) Abdominal pain: Abdominal location: generalized Qualified Codes: R10.84 - Generalized abdominal pain (2) Diarrhea: Diarrhea type: unspecified type Qualified Codes: R19.7 - Diarrhea, unspecified MAYCOL PETERSON MD August 13, 2017 07:58
[2017-08-13 08:08] VITALS: BP 113/81
[2017-08-13] MEDS: DOCUSATE SODIUM 100 MG CAP PO SCH (08:37)
[2017-08-13] MEDS: FAMOTIDINE 20 MG TAB PO SCH (08:37)
[2017-08-13] MEDS: KETOROLAC 30 MG/ML VIAL IVP PRN (09:14)
== END 2017-08-13 07:44 | disposition home or self-care (01) ==
LOC: OR 01:03 → MED 14:43
PROVIDERS: ADMIT Surgery; ATTEND Surgery
DX: K82.8 Other specified diseases of gallbladder (principal); R11.0 Nausea; R14.0 Abdominal distension (gaseous); N83.201 Unspecified ovarian cyst, right side
CPT/HCPCS: 00811; 36415; 43239; 45380; 47562; 82105; 82670; 83520; 83615; 84403; 84702; 84703; 87077; 88305; G0378; J0131; J0295; J1100; J1885; J2001; J2250; J2270; J2405; J2704; J2795; J3010; J3490; J7030; J7050; S2900

== ENCOUNTER → 2017-08-30 | Outpatient (CLI) | payer OTHER ==
[2017-05-15 09:53] VITALS: BMI 22.0
[~2017-08-30] MED LIST changes: +PER PO
--- NOTE | 2017-08-30 14:23 | RADIOLOGY IMAGING REPORT ---
FACILITY: [facility] PATIENT NAME: Pita Lebron : 1995 MR: [id number] V: [id number] EXAM DATE: ORDERING PHYSICIAN: MAYCOL PETERSON TECHNOLOGIST: [place] [facility] [place]ita Le[place] : 1995 Visit/Account:[id number] Date of Sevice: 08/30/2017 PELVIC ultrasound HISTORY: Left ovarian enlarged at time of surgery TECHNIQUE: Transabdominal ultrasound pelvis. COMPARISON: CT abdomen pelvis revealed very 2017 FINDINGS: Uterus: ; 7.1 cm length x 2.6 cm AP x 4.1 cm transverse. Myometrium: Unremarkable. Endometrium: Unremarkable; double thickness 8.5 mm. Cervix: Grossly negative. Ovaries: Right - 3.4 x 4 x 2 cm Left - 3.8 x 3.5 x 2.6 cm Blood flow is documented in each ovary by duplex Doppler ultrasound. Adnexa: Grossly unremarkable. Free pelvic fluid: None. IMPRESSION: Unremarkable transabdominal pelvic ultrasound Report Dictated By: Yolande Arita MD at 08/30/2017 2:16 PM Report E-Signed By: Yolande Arita MD at 08/30/2017 2:19 PM WSN:[email or web address]
== END ==
LOC: MRI 02:28
PROVIDERS: ATTEND Surgery
DX: N83.9 Noninflammatory disorder of ovary, fallopian tube and broad ligament, unspecified (principal)
CPT/HCPCS: 76856

== ENCOUNTER → 2017-09-08 | Outpatient (CLI) | payer OTHER ==
[2017-05-15 09:53] VITALS: BMI 22.0
--- NOTE | 2017-09-08 10:08 | RADIOLOGY IMAGING REPORT ---
FACILITY: [facility] [place] PATIENT NAME: Pita Lebron : 1995 MR: [id number] V: [id number] EXAM DATE: ORDERING PHYSICIAN: KATHLEEN SALDIVAR TECHNOLOGIST: Location: [facility] Patient: Pita Lebron : 1995 Visit/Account:[id number] Date of Sevice: 09/08/2017 Exam type: ORBITS FOREIGN BODY 1 VIEW History: Pre-MRI screening Comparison: None. Findings: No radiopaque metallic foreign bodies project over the orbits IMPRESSION: 1. No radiopaque metallic foreign bodies project over the orbits Report Dictated By: Yolande Arita MD at 09/08/2017 10:02 AM Report E-Signed By: Yolande Arita MD at 09/08/2017 10:04 AM WSN:[id number]
--- NOTE | 2017-09-08 12:29 | RADIOLOGY IMAGING REPORT ---
FACILITY: [facility] [place] PATIENT NAME: Pita Lebron : 1995 MR: [id number] V: [id number] EXAM DATE: ORDERING PHYSICIAN: KATHLEEN SALDIVAR TECHNOLOGIST: Location: [facility] [place] Patient: Pita Lebron : 1995 Visit/Account:[id number] Date of Sevice: 09/08/2017 PELVIS W/O CONTRAST COMPARISON: Pelvic ultrasound August 30, 2017. HISTORY: Left adnexal mass in surgery, not identified on ultraso. TECHNIQUE: Multiplanar MRI pelvis utilizing T1-weighted and fluid sensitive sequences. CONTRAST: None MRI PELVIS FINDINGS: VASCULAR: Unremarkable. PELVIC BOWEL: Suboptimally assessed by MRI. Visualized portions are unremarkable. BLADDER: Unremarkable. No visible focal wall thickening, appreciable lesion, or calculus. PELVIC NODES: Unremarkable. No adenopathy. PELVIC ORGANS: Uterus measures 3.2 x 4.5 x 6.9 cm. Normal thickness endometrium and junctional zone. Prominent glands in the lower endocervical canal. No discrete uterine fibroids. Left ovary overall m easures 5.1 x 5.6 x 5.3 cm, enlarged by a simple 3.9 x 4.7 cm cyst with numerous adjacent follicles. Right ovary normal size, 2.0 x 3.4 cm containing numerous follicles. There is no fluid in the cul-de- sac or adnexa. 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 No acute appearing fracture or s uspicious bone lesion. OTHER: Negative. IMPRESSION: 1. Benign 4.7 cm simple cyst enlarging the left ovary. 2. Unremarkable uterus and right ovary. Report Dictated By: Kristian Francois at 09/08/2017 12:21 PM Report E-Signed By: Kristian Francois at 09/08/2017 12:26 PM WSN:[id number]
== END ==
LOC: MRI 06:53
PROVIDERS: ATTEND Obstetrics & Gynecology
DX: N83.202 Unspecified ovarian cyst, left side (principal)
CPT/HCPCS: 70030; 72195

== ENCOUNTER → 2017-10-20 | Outpatient (REF) | payer OTHER ==
[2017-05-15 09:53] VITALS: BMI 22.0
[2017-10-20 11:48] LABS: PLATELET COUNT, AUTOMATED 241 K/uL (150-450)
== END ==
LOC: ZZSTITCHES 11:35
PROVIDERS: ATTEND Physician Assistant
DX: R53.83 Other fatigue (principal); R50.9 Fever, unspecified
CPT/HCPCS: 82310; 82374; 82435; 82565; 82947; 84132; 84295; 84520; 85025

== ENCOUNTER 2017-10-21 20:23 | Emergency (ER) | payer OTHER ==
[2017-05-15 09:53] VITALS: Wt 67.6 kg
[2017-10-21] MEDS ORDERED: NS(*) 0.9% 1000 ML BAG 1,000 ML IV ONE (20:34)
[2017-10-21] MEDS ORDERED: DIAZEPAM 5 MG TAB PO ONE (20:35)
[2017-10-21] MEDS ORDERED: KETOROLAC 30 MG/ML VIAL IVP ONE (20:35)
[2017-10-21 21:16] LABS: PLATELET COUNT, AUTOMATED 258 K/uL (150-450)
[2017-10-21] MEDS ORDERED: POTASSIUM CHL 20 MEQ TABCR PO SCH (21:30)
--- NOTE | 2017-10-21 22:11 | ER Report ---
History and Physical Time Seen By MD: 22:08 Hx. of Stated Complaint: PT REPORTS FEVER AND STIFF NECK AT HOME, NO KNOWN INJURY. REPORTS NO OTC MEDS AT HOME HPI/ROS CHIEF COMPLAINT: Neck stiffness, fever several days ago HISTORY OF PRESENT ILLNESS: Patient is a 22-year-old female here with complaints of neck stiffness for the past several days and a fever 2 days ago. Patient was evaluated yesterday at urgent care at which time lab findings were unremarkable however patient reports having persistent neck stiffness and difficulty turning her neck. Patient was concerned that she may have underlying infection which prompted evaluation today in the emergency department. She is afebrile at time of evaluation, nontoxic appearing and in no acute distress. Patient is hemodynamically stable and denies blurred vision, dysphasia, chest pain, shortness breath, nausea, vomiting. REVIEW OF SYSTEMS: Constitutional: No fever, no chills. Eyes: No discharge. ENT: No sore throat Cardiovascular: No chest pain, no palpitations. Respiratory: No cough, no shortness of breath. Gastrointestinal: No abdominal pain, no vomiting. Genitourinary: No hematuria. Musculoskeletal: No back pain, + neck stiffness Skin: No rashes. Neurological: + mild headache. Allergies: Coded Allergies: No Known Drug Allergies (Unverified , 10/21/17) Home Meds Reported Medications Omeprazole (OMEPRAZOLE) 20 Mg Capsule.dr, 1 CAP PO BID, CAP 04/30/17 Hx Smoking: No Smoking Status: Never Smoker Exposure to Second Hand Smoke?: No Hx Substance Use Disorder: No Hx Alcohol Use: Yes Constitutional Physical Exam General Appearance: The patient is alert, has no immediate need for airway protection and no signs of toxicity. NAD, AAO x 3 Eyes: Pupils equal and round no pallor or injection. ENT, Mouth: Mucous membranes are moist. Respiratory: There are no retractions, lungs are clear to auscultation. Cardiovascular: Regular rate and rhythm. Gastrointestinal: Abdomen is soft and non tender, no masses, bowel sounds normal. Neurological: No focal neurological deficits on exam Skin: Warm and dry, no rashes, no petechial rashes Musculoskeletal: Neck is supple with full ROM with passive ROM testing Extremities are nontender, nonswollen and have full range of motion. DIFFERENTIAL DIAGNOSIS: After history and physical exam differential diagnosis was considered for adult fever including but not limited to viral syndromes including influenza, urinary tract infection, pneumonia and sepsis, meningitis, viral infection, Lyme disease, electrolyte abnormality Medical Decision Making Data Points Laboratory Hematology Test 10/21/17 21:03 Red Blood Count 5.13 M/uL (4.17-5.56) Mean Corpuscular Volume 86.3 fL (80.0-96.0) Mean Corpuscular Hemoglobin 30.5 pg (26.0-33.0) Mean Corpuscular Hemoglobin Concent 35.4 g/dL (32.0-36.0) Red Cell Distribution Width 13.0 % (11.5-14.5) Mean Platelet Volume 7.9 fL (7.2-11.1) Neutrophils (%) (Auto) 77.0 % (39.4-72.5) Lymphocytes (%) (Auto) 12.0 % (17.6-49.6) Monocytes (%) (Auto) 8.8 % (4.1-12.4) Eosinophils (%) (Auto) 1.2 % (0.4-6.7) Basophils (%) (Auto) 1.0 % (0.3-1.4) Nucleated RBC Relative Count (auto) 0.0 /100WBC Neutrophils # (Auto) 6.5 K/uL (2.0-7.4) Lymphocytes # (Auto) 1.0 K/uL (1.3-3.6) Monocytes # (Auto) 0.7 K/uL (0.3-1.0) Eosinophils # (Auto) 0.1 K/uL (0.0-0.5) Basophils # (Auto) 0.1 K/uL (0.0-0.1) Nucleated RBC Absolute Count (auto) 0.00 K/uL Erythrocyte Sedimentation Rate 2 mm/HOUR (0-20) Sodium Level 141 mmol/L (137-145) Potassium Level 2.9 mmol/L (3.5-5.0) Chloride Level 102 mmol/L (98-107) Carbon Dioxide Level 27 mmol/L (22-31) Blood Urea Nitrogen 9 mg/dl (7-18) Creatinine 0.90 mg/dl (0.52-1.04) Glomerular Filtration Rate Calc > 60.0 Random Glucose 112 mg/dl (75-110) Calcium Level 9.3 mg/dl (8.4-10.2) Total Bilirubin 0.4 mg/dl (0.2-1.3) Aspartate Amino Transf (AST/SGOT) 17 U/L (0-35) Alanine Aminotransferase (ALT/SGPT) 19 U/L (0-56) Alkaline Phosphatase 122 U/L (0-126) C-Reactive Protein 4.3 mg/dl (<1.0) Total Protein 7.1 g/dl (6.3-8.2) Albumin 4.3 g/dl (3.5-5.0) Chemistry Test 10/21/17 21:03 White Blood Count 8.5 k/uL (4.5-11.0) Red Blood Count 5.13 M/uL (4.17-5.56) Hemoglobin 15.7 g/dL (12.0-16.0) Hematocrit 44.3 % (34.0-47.0) Mean Corpuscular Volume 86.3 fL (80.0-96.0) Mean Corpuscular Hemoglobin 30.5 pg (26.0-33.0) Mean Corpuscular Hemoglobin Concent 35.4 g/dL (32.0-36.0) Red Cell Distribution Width 13.0 % (11.5-14.5) Platelet Count 258 K/uL (150-450) Mean Platelet Volume 7.9 fL (7.2-11.1) Neutrophils (%) (Auto) 77.0 % (39.4-72.5) Lymphocytes (%) (Auto) 12.0 % (17.6-49.6) Monocytes (%) (Auto) 8.8 % (4.1-12.4) Eosinophils (%) (Auto) 1.2 % (0.4-6.7) Basophils (%) (Auto) 1.0 % (0.3-1.4) Nucleated RBC Relative Count (auto) 0.0 /100WBC Neutrophils # (Auto) 6.5 K/uL (2.0-7.4) Lymphocytes # (Auto) 1.0 K/uL (1.3-3.6) Monocytes # (Auto) 0.7 K/uL (0.3-1.0) Eosinophils # (Auto) 0.1 K/uL (0.0-0.5) Basophils # (Auto) 0.1 K/uL (0.0-0.1) Nucleated RBC Absolute Count (auto) 0.00 K/uL Erythrocyte Sedimentation Rate 2 mm/HOUR (0-20) Glomerular Filtration Rate Calc > 60.0 Calcium Level 9.3 mg/dl (8.4-10.2) Total Bilirubin 0.4 mg/dl (0.2-1.3) Aspartate Amino Transf (AST/SGOT) 17 U/L (0-35) Alanine Aminotransferase (ALT/SGPT) 19 U/L (0-56) Alkaline Phosphatase 122 U/L (0-126) C-Reactive Protein 4.3 mg/dl (<1.0) Total Protein 7.1 g/dl (6.3-8.2) Albumin 4.3 g/dl (3.5-5.0) EKG/Imaging Imaging EXAMINATION: CT cervical spine without IV contrast HISTORY: Headache. TECHNIQUE: Thin axial CT images of the cervical spine were obtained without IV contrast, with sagittal and coronal 2D reconstructed images. One of the following dose optimization techniques was utilized in the performance of this exam: Automated exposure control; adjustment of the mA and/ or kV according to the patient's size; or use of an iterative reconstruction technique. Specific details can be referenced in the facility's radiology CT exam operational policy. COMPARISON: None. FINDINGS: The cervical spine is negative for acute fracture or subluxation. Normal alignment. Vertebral body height and disc spaces are preserved. The dens is intact. The craniocervical junction demonstrates normal alignment. IMPRESSION: Negative cervical spine CT. EXAMINATION: CT head without IV contrast HISTORY: Headache. TECHNIQUE: Axial CT images of the head were obtained from the vertex to the skull base without IV contrast, with coronal and sagittal 2D reconstructed images. One of the following dose optimization techniques was utilized in the performance of this exam: Automated exposure control; adjustment of the mA and/ or kV according to the patient's size; or use of an iterative reconstruction technique. Specific details can be referenced in the facility's radiology CT exam operational policy. COMPARISON: None. FINDINGS: The intracranial contents are unremarkable. No CT evidence of intracranial hemorrhage, mass lesion, or acute infarct. No midline shift or extra-axial fluid collections. Huntley-white differentiation is maintained. The calvarium is intact. The visualized paranasal sinuses and mastoid air cells are unopacified. IMPRESSION: Unremarkable noncontrast head CT. ED Course/Re-evaluation ED Course Patient is a 22-year-old female here with complaints of neck stiffness for the past several days, fever several days ago. Patient was seen yesterday at urgent care with an unremarkable workup. Due to her symptoms, a CT imaging of the head and C-spine were completed and were unremarkable. CBC, CMP, ESR CRP were completed and were remarkable for hypokalemia which was repleted. ESR and CRP were unremarkable making a meningitic process much less likely especially coinciding with clinical exam. Patient was alert and oriented with no signs of altered sensorium. Patient received Toradol, fluids, diazepam with moderate relief of symptoms. I discussed the findings with the patient who with shared decision making declined lumbar puncture as workup had made meningitis a much less likely etiology for her symptoms. I discussed in depth reasons for return to the emergency department patient voiced understanding. She agreed with close follow-up with her PCP. Patient was well-appearing, hemodynamically stable and alert and oriented at time of discharge. Decision to Disposition Date: Oct 21, 2017 Decision to Disposition Time: 22:00 Depart Departure Latest Vital Signs Impression: Primary Impression: Neck stiffness Condition: Improved Disposition: HOME OR SELF-CARE Patient Instructions: Neck Pain (DC) Additional Instructions: Please follow-up with your family doctor in one week to have your electrolytes repeated. Please return promptly if you develop fevers, chills, worsening neck pain, headache, visual disturbances. KEYLA ABRAHAM DO Oct 21, 2017 22:11
--- NOTE | 2017-10-21 22:12 | RADIOLOGY IMAGING REPORT ---
FACILITY: [facility] [place] PATIENT NAME: Pita Lebron : 1995 MR: [id number] V: [id number] EXAM DATE: ORDERING PHYSICIAN: KEYLA ABRAHAM TECHNOLOGIST: Location: [facility] [place] Patient: Pita Lebron : 1995 Visit/Account:[id number] Date of Sevice: 10/21/2017 EXAMINATION: CT head without IV contrast HISTORY: Headache. TECHNIQUE: Axial CT images of the head were obtained from the vertex to the skull base without IV c ontrast, with coronal and sagittal 2D reconstructed images. One of the following dose optimization techniques was utilized in the performance of this exam: Autom ated exposure control; adjustment of the mA and/or kV according to the patient's size; or use of an i terative reconstruction technique. Specific details can be referenced in the facility's radiology C T exam operational policy. COMPARISON: None. FINDINGS: The intracranial contents are unremarkable. No CT evidence of intracranial hemorrhage, mass lesion, or acute infarct. No midline shift or extra-axial fluid collections. Huntley-white differentiation is maintained. The calvarium is intact. The visualized paranasal sinuses and mastoid air cells are unopacified. IMPRESSION: Unremarkable noncontrast head CT. Report Dictated By: Mukund Rodriguez MD at 10/21/2017 10:03 PM Report E-Signed By: Mukund Rodriguez MD at 10/21/2017 10:08 PM WSN:[id number]
--- NOTE | 2017-10-21 22:14 | RADIOLOGY IMAGING REPORT ---
[facility] PATIENT NAME: Pita Lebron : 1995 MR: [id number] V: [id number] EXAM DATE: ORDERING PHYSICIAN: KEYLA ABRAHAM TECHNOLOGIST: Location: [facility] [place] Patient: Pita Lebron : 1995 Visit/Account:[id number] Date of Sevice: 10/21/2017 EXAMINATION: CT cervical spine without IV contrast HISTORY: Headache. TECHNIQUE: Thin axial CT images of the cervical spine were obtained without IV contrast, with sagit kasey and coronal 2D reconstructed images. One of the following dose optimization techniques was utilized in the performance of this exam: Autom ated exposure control; adjustment of the mA and/or kV according to the patient's size; or use of an i terative reconstruction technique. Specific details can be referenced in the facility's radiology C T exam operational policy. COMPARISON: None. FINDINGS: The cervical spine is negative for acute fracture or subluxation. Normal alignment. Vertebral body height and disc spaces are preserved. The dens is intact. The craniocervical junction demonstrates normal alignment. IMPRESSION: Negative cervical spine CT. Report Dictated By: Mukund Rodriguez MD at 10/21/2017 10:08 PM Report E-Signed By: Mukund Rodriguez MD at 10/21/2017 10:10 PM WSN:[id number]
[2017-10-21 22:18] VITALS: BP 132/87
== END 2017-10-21 22:16 | disposition home or self-care (01) ==
LOC: ER 20:44
DX: M43.6 Torticollis (principal)
CPT/HCPCS: 70450; 72125; 85025; 85651; 86140; 96361; 96374; 99284; J1885; J7030; 82040; 82247; 82310; 82374; 82435; 82565; 82947; 84075; 84132; 84155; 84295; 84450; 84460; 84520